=== PATIENT | female | born 1995 | race Caucasian/White ===

== ENCOUNTER 2021-03-24 03:28 | Emergency (ER) | payer SELFPAY ==
[~2021-03-24] VITALS: Ht 167.6 cm; Wt 58.1 kg
--- NOTE | 2021-03-24 04:00 | NUR ---
EDMD requested another Floroscence tray set up in [facility]. Tray set up with [id number] and uv lamp, pt positioned supine for procedure.
[2021-03-24] MEDS ORDERED: FLUORESCEIN SODIUM 1 MG STRIP ONE (04:25)
[2021-03-24] MEDS ORDERED: CEFTRIAXONE 1 G in IV DEXTROSE 5% 50 ML IV ONE (04:30)
[2021-03-24 04:32] LABS: MEAN CORPUSCULAR HEMOGLOBIN 30.5 uug (24.7-32.8); MEAN CORPUSCULAR VOLUME 90.7 fL (75.5-95.3); PLATELET COUNT (AUTO) 377 K/uL (179-408)
[2021-03-24 04:37] LABS: CARBON DIOXIDE 32 mmol/L (21-32); CHLORIDE 102 mmol/L (98-107); GLUCOSE 101 mg/dL (74-106); POTASSIUM 4.9 mmol/L (3.5-5.1); UREA NITROGEN, BLOOD 13 mg/dL (7-18)
[2021-03-24 05:08] LABS: ALANINE AMINOTRANSFERASE 43 U/L (14-59); ALKALINE PHOSPHATASE 116 U/L (50-136); ASPARTATE AMINOTRANSFERASE 33 U/L (15-37); BILIRUBIN,DIRECT < 0.1 mg/dL (0.0-0.2); BILIRUBIN,TOTAL 0.2 mg/dL (0.2-1.0); TOTAL PROTEIN, SERUM 7.9 g/dL (6.4-8.2)
[2021-03-24] MEDS ORDERED: IV NS 1000 ML 1,000 ML IV ONE (05:45)
[2021-03-24] MEDS ORDERED: IV NORMAL SALINE 250 ML IV ONE (05:51)
[2021-03-24] MEDS ORDERED: IOHEXOL 300MG/ML 100 ML INFUS..BTL ONE (05:51)
[2021-03-24] MEDS ORDERED: SWABABLE VALVE TRANSFER SET EA MC ONE (05:51)
--- NOTE | 2021-03-24 06:22 | NUR ---
VIV CALLED, PASCUALED PAGED.
[2021-03-24] MEDS ORDERED: CEFTRIAXONE /D5W 50ML IVPB **ER PYXIS IV ONE (06:32)
[2021-03-24 06:52] LABS: *BILIRUBIN,URIN NEGATIVE (NEGATIVE); *CLARITY,URINE CLOUDY (CLEAR); *COLOR,URINE YELLOW (YELLOW); *KETONES,URINE NEGATIVE (NEGATIVE); *UROBILINOGEN,URINE 0.2 E.U./dl (NORMAL); LEUKOCYTE ESTERASE ,URINE 1+ (NEGATIVE); NITRITE, URINE NEGATIVE (NEGATIVE); PH,URINE 5.5 (5.0-8.0); UGLUCOSE NEGATIVE (NEGATIVE)
[2021-03-24 07:03] LABS: *BLOOD, URINE TRACE (NEGATIVE)
[2021-03-24 07:05] LABS: BACTERIA,URINE FEW /HPF (NONE SEEN); RBC,URINE 0-3 /HPF (0-3); SQUAMOUS EPITHELIAL CELL,UR FEW /HPF (NONE SEEN)
--- NOTE | 2021-03-24 07:15 | NUR ---
ASSUMED CARE FOR PATIENT AT THIS TIME. AO X 4. NO ACUTE DISTRESS NOTED. PATIENT IS VERBALIZING THAT SHE WANTS TO GO AMA. DR CHAVES MADE AWARE AND IS AT BEDSIDE.
[2021-03-24 07:26] LABS: *AMPHETAMINE, URINE POSITIVE (NEGATIVE); *CANNABINOID, URINE POSITIVE (NEGATIVE); *COCCAINE, URINE NEGATIVE (NEGATIVE); *OPIATE, URINE POSITIVE (NEGATIVE); *PHENCYCLIDINE SCREEN,URINE NEGATIVE (NEGATIVE)
--- NOTE | 2021-03-24 07:43 | NUR ---
Patient does not wish to proceed with medical care recommended by Dr. CHAVES. Patient given information related to possible complications, up to and including , which could occur as a result of leaving the hospital at this time. Patient verbalizes understanding of risks involved due to leaving against medical advice. Patient has signed AMA form. IV removed. Catheter intact and site benign. Pressure and 4x4 gauze applied to site. No bleeding noted. Ambulated out of ED in steady gait.
== END 2021-03-24 07:40 | disposition left against medical advice (07) ==
LOC: ER 03:39
DX: H05.012 Cellulitis of left orbit (principal); E83.52 Hypercalcemia; Z53.29 Procedure and treatment not carried out because of patient's decision for other reasons; D72.829 Elevated white blood cell count, unspecified; F19.90 Other psychoactive substance use, unspecified, uncomplicated
CPT/HCPCS: 36415; 80048; 80076; 80307; 81001; 82607; 83970; 85025; 85651; 87070; 87081; 87086; 96361; 96365; 99285; J0696; Q9967; A4663; J7030; J7050